=== PATIENT | male | born 1985 | race Two or more races ===

== ENCOUNTER 2023-12-24 08:28 | Emergency (ER) | payer MEDICAID ==
[~2023-12-24] VITALS: Ht 170.2 cm; Wt 81.8 kg
[2023-12-24 08:30] VITALS: BP 110/68; PULSE 64; RESP 16; TEMP 98; O2SAT 99
[2023-12-24] MEDS: PERTUSS(ACELL),DIPH,TET/PF 0.5 ML SYRINGE [ADULT] IM. ONE (08:59)
[2023-12-24] MEDS: LIDOCAINE 1% 10 ML VIAL SQ ONE (09:05)
== END 2023-12-24 09:50 | disposition home or self-care (01) ==
LOC: EMS 08:28
DX: S61.411A Laceration without foreign body of right hand, initial encounter (principal); Z90.49 Acquired absence of other specified parts of digestive tract; W25.XXXA Contact with sharp glass, initial encounter; Y93.89 Activity, other specified; Y92.89 Other specified places as the place of occurrence of the external cause; Y99.8 Other external cause status
CPT/HCPCS: 99283; 90715; 90471; 12001; J3490

== ENCOUNTER 2023-12-31 10:29 | Emergency (ER) | payer MEDICAID ==
[~2023-12-31] VITALS: Ht 167.6 cm; Wt 76.0 kg
[2023-12-31 10:34] VITALS: TEMP 98
[2023-12-31 12:02] VITALS: BP 115/61; PULSE 61; RESP 16; O2SAT 98
== END 2023-12-31 12:15 | disposition home or self-care (01) ==
LOC: EMS 10:29
DX: S60.921D Unspecified superficial injury of right hand, subsequent encounter (principal); Z90.49 Acquired absence of other specified parts of digestive tract; Z48.02 Encounter for removal of sutures; Z48.00 Encounter for change or removal of nonsurgical wound dressing; X58.XXXD Exposure to other specified factors, subsequent encounter
CPT/HCPCS: 99281; Z7502

== ENCOUNTER 2024-09-09 21:03 | Emergency (ER) | payer SELFPAY ==
[~2024-09-09] VITALS: Ht 165.1 cm; Wt 75.0 kg
[2024-09-09 23:24] VITALS: TEMP 98.305304
[2024-09-10 01:25] VITALS: BP 117/54; PULSE 79; RESP 16; O2SAT 98
== END 2024-09-10 01:28 | disposition home or self-care (01) ==
LOC: EMS 21:03
DX: S82.891A Other fracture of right lower leg, initial encounter for closed fracture (principal); Z90.49 Acquired absence of other specified parts of digestive tract; X50.1XXA Overexertion from prolonged static or awkward postures, initial encounter; Y93.66 Activity, soccer; Y92.322 Soccer field as the place of occurrence of the external cause; Y99.8 Other external cause status
CPT/HCPCS: 29515; 99284